=== PATIENT | female | born 1995 | race Caucasian/White ===

== ENCOUNTER 2020-05-02 19:47 | Emergency (ER) | payer OTHER, SELFPAY ==
[2020-05-02 19:52] VITALS: BP 161/90; PULSE 99; RESP 16; TEMP 36.7; O2SAT 100
--- NOTE | 2020-05-02 20:02 | ED.GENADUL_ITS ---
Discharge Plan Disposition Patient Disposition: HOME Condition: Good Discharge Details Chief Complaint: Sorethroat Clinical Impression: Pharyngitis, Viral URI Primary Care Provider: Luda,Local ED Provider: Arden Andrade Home Meds and New Rx's Prescriptions: Continued triamcinolone acetonide 80 GM ointment 80 gm Topical BID PRNQty: 1 RF: 2 Discharge Instructions Instructions: Pharyngitis (ED) Additional Instructions: At this time your symptoms are consistent with a viral upper respiratory infection. It is very unlikely that this is from coronavirus. Out of an abundance of precaution it would be reasonable to self quarantine yourself until completely symptom-free for greater than 24-48 hours or your test results have returned. We will likely take 7 to 10 days for your results to come back. Please check your portal for the results or call the ER to get your results. It would be prudent to wear a mask at all times, always wash your hands frequently, follow-up closely with your primary care provider. You can always call their office first. Please continue to gargle with salt water, take Tylenol and Motrin as needed for your pain, get plenty of rest, and drink plenty of fluids. It is likely that your symptoms will resolve in 48 to 72 hours. If you notice any worsening of your symptoms, or any new symptoms such as vomiting, diarrhea, fever, chills, shortness of breath, chest pain, numbness, weakness, or fainting, please CALL and then return immediately to the emergency department for reevaluation. Please CALL first and then follow up with your [facility] care provider as soon as possible for reassessment and reevaluation. As always, it was a pleasure participating in your medical care today. Medical Decision Making 25-year-old female with no significant past medical history who presents today for evaluation of sore throat. Patient states that for the last 24 hours she has had a mild sore throat in the right side of her throat, she is also had some mild ear pressure. She has had no fever, chills, neck pain or headache. She denies any extreme fatigue or left-sided flank pain. She does have history of strep throat in the past and states that this feels similar. She denies any drainage from her ears, cough, chest pain, shortness of breath. She did recently return from [place] but denies any sick contacts and there. No other complaints at this time. No other modifying factors. She denies any tobacco use or any other complaints at this time. Physical exam demonstrates an unremarkable posterior oropharynx, no splenomegaly, symptoms inconsistent with mono or meningitis. Notably unlikely to be coronavirus given the patient's benign symptomatology especially with no evidence of fever or chills. More cough. Strep test was performed and is negative, we will send for culture. Suspect mild viral upper respiratory infection, however out of an abundance of precaution we will recommend isolation until symptoms resolve or coronavirus testing returns. We will test for coronavirus out of an abundance of precaution. At this time with no signs of toxic appearance or other concerning life-threatening etiology the patient will be discharged home. I have extensively reviewed the treatment plan and discharge instructions with the patient. I have addressed all patient concerns at this time. The patient was made aware of what symptoms to monitor for that would warrant a return to the emergency department. Discussed the plan with the patient, they demonstrate verbal understanding and agreement with our assessment and plan at this time. HPI General Date/Time Provider Initiated Documentation: 05/02/20 19:49 . HPI Narrative: 25-year-old female with no significant past medical history who presents today for evaluation of sore throat. Patient states that for the last 24 hours she has had a mild sore throat in the right side of her throat, she is also had some mild ear pressure. She has had no fever, chills, neck pain or headache. She denies any extreme fatigue or left-sided flank pain. She does have history of strep throat in the past and states that this feels similar. She denies any drainage from her ears, cough, chest pain, shortness of breath. She did recently return from [place] but denies any sick contacts and there. No other complaints at this time. No other modifying factors. She denies any tobacco use or any other complaints at this time. Related Data Home Medications Medication Instructions Recorded Confirmed triamcinolone acetonide 80 gm TOPICAL BID PRN #1 applic 02/18/18 05/02/20 Allergies Allergy/AdvReac Type Severity Reaction Status Date / Time CREST TOOTHPASTE Allergy Unknown Uncoded 05/02/20 19:58 General Stated Complaint: Sorethroat KAILYN: 4 Review of Systems All systems reviewed & are unremarkable except as noted in HPI and below PFSH Family History Mother No problems noted. Father No problems noted. Sister No problems noted. Grandfather Diabetes Hyperlipidemia Neoplasm SKIN Grandfather No problems noted. Grandmother Essential hypertension Heart disease Grandmother Neoplasm BREAST Social History Smoking/Tobacco Use Status: Never Drug use: Never Exam Narrative Exam Narrative: 1.Const: Well-nourished, Well-developed, appearing stated age 2.Eyes: PERRL, no conjunctival injection, and symmetrical lids. 3.ENT: Atraumatic external nose and ears. Moist MM. Neck: Symmetric, trachea midline, No thyromegaly. No significant erythema or cobblestoning in the posterior oropharynx. No tonsillar exudate or enlargement. Relatively unremarkable posterior oropharynx. Ear canals demonstrate no evidence of effusion, bulging, or rupture. There is a small amount of cerumen in each ear, but no evidence of impaction. Patient demonstrates good movement of cervical neck. There is no nuchal rigidity, no nuchal tenderness. Patient is able to flex the neck without any difficulty or significant pain. Negative Kernig's and Brudzinski sign. 4.CVS: +S1/S2, No murmurs or gallops. Peripheral pulses 2+ and equal in all extremities. Brisk capillary refill in all extremities. 5.RESP: Unlabored respiratory effort. Clear to auscultation bilaterally. No wheezes rales or rhonchi 6.GI: Soft, Nontender/Nondistended, No hepatosplenomegaly. No guarding or rebound. 7.MSK: Normocephalic/Atraumatic, Extremities w/o deformity or ttp No cyanosis or clubbing, Normal movement of all extremities 8.Skin: Warm, Dry. No rashes or lesions. 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 Sensation grossly intact, no focal neurologic deficits. 10.Psych: (AAO) x3. Appropriate mood and affect Course Vital Signs Vital signs: Vital Signs Temperature 36.7 C 05/02/20 19:52 Pulse 99 H 05/02/20 19:52 Respiratory Rate 16 05/02/20 19:52 Blood Pressure 161/90 H 05/02/20 19:52 Pulse Oximetry 100 05/02/20 19:52 Temperature 36.7 C 05/02/20 19:52 Temperature Source Temporal Artery Scan 05/02/20 19:52 Pulse 99 H 05/02/20 19:52 Respiratory Rate 16 05/02/20 19:52 Blood Pressure 161/90 H 05/02/20 19:52 Blood Pressure Position Sitting 05/02/20 19:52 Pulse Oximetry 100 05/02/20 19:52 Oxygen Delivery Method Room Air 05/02/20 19:52 Oxygen Flow Rate 0 05/02/20 19:52
[2020-05-05 07:06] LABS: SARS-CoV-2 RNA Undetected (Undetected); SARS-CoV-2 Specimen Source Nasopharynx
--- NOTE | 2020-05-12 10:01 | NUR.NOTE ---
1000 Pia Dunn called for Covid result---Undetected result givenNursing Note:
== END 2020-05-02 20:15 | disposition home or self-care (01) ==
PROVIDERS: Emergency Provider Student in an Organized Health Care Education/Training Program
DX: J02.8 Acute pharyngitis due to other specified organisms (principal); J06.9 Acute upper respiratory infection, unspecified; R01.1 Cardiac murmur, unspecified; Z11.59 Encounter for screening for other viral diseases
CPT/HCPCS: 87880; 99282; U0003; 87081; 99283

== ENCOUNTER 2020-07-13 07:31 | Outpatient (CLI) | payer OTHER, SELFPAY ==
[2020-07-17 18:07] LABS: Patient Race White; SARS-CoV-2 RNA Undetected (Undetected); SARS-CoV-2 Specimen Source Nasal
== END 2020-07-13 07:51 ==
PROVIDERS: Visit Provider Internal Medicine
DX: Z11.59 Encounter for screening for other viral diseases (principal)
CPT/HCPCS: U0003

== ENCOUNTER 2020-11-09 15:36 | Outpatient (REF) | payer MEDICAID, SELFPAY ==
--- NOTE | 2020-11-09 14:30 | PAPFT_PTH ---
PATIENT: VELASQUEZ SHORT LOC: NCN #:[id number] AGE/SX: 25/F ROOM: RE11/09/[address]: LAURA Verma : 1995 BED: DIS: 11/09/2020 SPEC #: [id number] RECD: 11/12/20 13:10 STATUS: MICHAEL REDemarcus #: [id number] ASTER: 11/09/20 14:[address]: Maddison Parnell DEPT: [facility] Cytology RECD BY: Komal Brown Tissues: 1 - CX/ENDOCX FOR PAP SMEARS Procedures: PAP THIN PREP/UVM Screening Comments: [id number]
== END 2020-11-09 15:37 | disposition home or self-care (01) ==
LOC: NCHCN 15:36
PROVIDERS: PCP Nurse Practitioner Family; Visit Provider Nurse Practitioner Family
DX: Z12.4 Encounter for screening for malignant neoplasm of cervix (principal)
CPT/HCPCS: 88142; 87624

== ENCOUNTER 2020-11-15 01:56 | Outpatient (CLI) | payer MEDICAID, SELFPAY ==
--- NOTE | 2020-11-15 06:45 | DI.US_ITS ---
EXAM: US SOFT TISSUE HEAD OR NECK CLINICAL HISTORY: Painless firm nodule just beneath right TMJ,R22.1. TECHNIQUE: Ultrasound was performed using standard protocol. COMPARISON: No exams were available for comparison FINDINGS: Ultrasound assessment utilizing grayscale and color Doppler imaging was performed and targeted to the area of clinical concern. Area of concern is right side of the neck-parotid gland region Submitted images reveal a slightly lobulated solid 6 x 7 x 6 millimeter nodule adjacent to the paroti d gland, this apparent corresponding to the likely palpable finding. Scanning lower down in the right-side of the neck there are multiple lymph nodes noted, the largest measuring 11 x 4 x 8 millimeters. IMPRESSION: 6 x 7 x 6 millimeter solid nodule adjacent to the right parotid gland. Multiple small ipsilateral ly mph nodes the neck. Recommend follow-up CT scan. DATA REPOSITORY:
== END 2020-11-15 01:57 ==
LOC: DI 01:57
PROVIDERS: PCP Nurse Practitioner Family; Visit Provider Nurse Practitioner Family
DX: R22.1 Localized swelling, mass and lump, neck (principal); R59.0 Localized enlarged lymph nodes
CPT/HCPCS: 76536

== ENCOUNTER 2020-11-20 01:44 | Outpatient (CLI) | payer MEDICAID, SELFPAY ==
--- NOTE | 2020-11-20 07:45 | DI.CT_ITS ---
EXAM: CT NECK W CLINICAL HISTORY: Further eval solid nodule adjacent to right parotiD,R22.1 TECHNIQUE: COMPARISON: No exams were available for comparison FINDINGS: CT examination of the cervical region was performed intravenous infusion 100 cc of Visipaque 320. Images obtained through the lung apices are unremarkable. Tracheolaryngeal structures appear intact. No vascular abnormality seen. Visualized portions of the orbits and brain appear normal. Paranasal si nuses and mastoid air cells are clear as visualized. A BB marker is placed adjacent to the posterior aspect of the right parotid gland. There is an associ ated well-circumscribed 10 millimeter in diameter nodule which appears to be originating from the par otid gland consistent with an intraparotid lymph node. Scattered lymph nodes are noted throughout the cervical lymph chains bilaterally without adenopathy. Submandibular glands appear normal bilaterally. No intraparotid abnormality seen on either side. IMPRESSION: Negative cervical CT. Indeterminate 10 millimeter palpable nodule on the right which is most likely t o represent an intraparotid lymph node. Other etiologies including malignancy not excluded on the bas is of this examination and if the lesion is clinically suspicious biopsy may be considered. RADIATION DOSE DELIVERED: 475.4mGy.cm Total DLP
[2020-11-20] MEDS: Normal Saline - Diluent 50 ML VIAL IV (14:45)
== END 2020-11-20 02:04 ==
PROVIDERS: PCP Nurse Practitioner Family; Visit Provider Nurse Practitioner Family
DX: R22.1 Localized swelling, mass and lump, neck (principal)
CPT/HCPCS: 70491